=== PATIENT | female | born 1970 | race Caucasian/White ===

== ENCOUNTER → 2016-11-30 | Outpatient (CLI) | payer OTHER | LOC: FIMAGING 14:16 | PROVIDERS: ATTEND Physician Assistant | DX: N63 Unspecified lump in breast (principal) | CPT/HCPCS: G0204 ==

== ENCOUNTER → 2016-12-07 | Outpatient (CLI) | payer OTHER | LOC: FIMAGING 11:44 | PROVIDERS: ATTEND Physician Assistant | PROC: 0HBU3ZX Excision of Left Breast, Percutaneous Approach, Diagnostic (ICD-10-PCS; principal; 2016-12-07) | DX: C50.912 Malignant neoplasm of unspecified site of left female breast (principal) ==

== ENCOUNTER → 2016-12-27 | Outpatient (CLI) | payer OTHER | LOC: FIMAGING 09:37 | PROVIDERS: ATTEND Surgery | PROC: C71L1ZZ Planar Nuclear Medicine Imaging of Upper Chest Lymphatics using Technetium 99m (Tc-99m) (ICD-10-PCS; principal; 2016-12-27) | DX: C50.912 Malignant neoplasm of unspecified site of left female breast (principal) | CPT/HCPCS: 78195; A9520 ==

== ENCOUNTER 2017-06-27 06:42 | Inpatient (IN) | payer OTHER ==
--- NOTE | 2017-06-20 17:56 | GHP ---
[f rep st] PREOP HISTORY AND PHYSICAL SCHEDULED DATE OF SURGERY: 06/27/2017 at 8:15 a.m. SURGERY TO BE PERFORMED: Total abdominal hysterectomy, bilateral salpingo- oophorectomy. PREOPERATIVE DIAGNOSIS: Severe menometrorrhagia, submucosal uterine fibroids, and history of breast cancer. HISTORY OF PRESENT ILLNESS: The patient is a 47-year-old 2, para 2-0-0- 2, with a past medical history significant for breast cancer, who is status post lumpectomy, radiation and chemotherapy, and is now on tamoxifen. She is currently experiencing very heavy periods every 2 to 4 weeks with heavy flow, multiple flooding accidents, limiting her activities, and she presented for consultation and evaluation. She had an ultrasound which revealed multiple uterine fibroids, specifically 2 submucosal in location. The largest is 1.27 x 1.08 x 1.24 cm and the other one is 1.5 x 1.5 x 0.9 cm. She also has a small cervical subserosal fibroid. The endometrial lining itself was thin at 0.65 cm. Ovaries have multiple follicles and the left ovary has a small complex cyst that is 1.5 cm. She presented to me for treatment options regarding submucosal fibroids and heavy menometrorrhagia. The patient is very concerned about possibility of ovarian and uterine cancer because of her history of breast cancer as well as her tamoxifen use, and she wishes to have definitive therapy with a hysterectomy. We had an extensive discussion on type of hysterectomy and surgical approaches. She has a history of C-sections with her 2 children and is very concerned about the possibility of vaginal surgery or difficulties with vaginal surgery requiring trauma to the vagina or the vulva. She prefers an abdominal approach, even though the overall size of her uterus is not very big and I offered her a laparoscopic approach. The patient prefers to have an abdominal approach and we will do a total abdominal hysterectomy/ bilateral salpingo-oophorectomy. PAST OBSTETRICAL HISTORY: In 1993, she had a and in 1997 she had a repeat . was for arrest of descent. The second one was an elective repeat. Those are her only 2 pregnancies. There were no overall complications. PAST GYNECOLOGICAL HISTORY: Significant for her breast cancer. She has used the pill and IUDs for control in the past. Her current has a vasectomy. Her bleeding is heavy, dysfunctional, and has been increasing over the past year. She has not had a history of an abnormal Pap. Her most recent Pap was in March of this year and was normal. She has no history of any STDs. PAST MEDICAL HISTORY: Significant for the breast cancer diagnosed at the beginning of this year and she is currently in treatment and she is on tamoxifen. PAST SURGICAL HISTORY: Significant for an appendectomy in 2002, breast implants in 2000, and then her breast lumpectomy at the beginning of this year. ALLERGIES: She has no known drug allergies. SOCIAL HISTORY: She denies tobacco. She has alcohol 2 to 3 times a week. No drug use. No other substances. She regularly exercises. She works in insurance sales. Lives with her and her 2 children. REVIEW OF SYSTEMS: Significant for significant anxiety and depression. Patient has had symptoms that have worsened since her breast cancer diagnosis and treatments. She is beginning therapy for this and I started her on Paxil for depression and anxiety symptoms as well as to attempt to improve hot flashes and night sweats as the side effects from the tamoxifen and they will get worse after her hysterectomy. Other review of systems negative. No other general symptoms, cardiovascular, respiratory, GI, integument, and endocrine. All other 10-point review of systems negative except for in HPI as above. FAMILY HISTORY: Significant for father who had alcoholism and heart disease and at age 45. A brother also has alcoholism and type 2 diabetes. Mother has type 2 diabetes. Maternal grandmother had cervical cancer and her other grandmother had breast cancer. She has had genetic counseling and is negative for BRACA lesion. OBJECTIVE: VITAL SIGNS: Today, blood pressure is 100/58, weight is 184. GENERAL: She is a well-developed, well-nourished female, in no acute distress. LUNGS: Clear to auscultation bilaterally. HEART: Regular rate and rhythm. No murmurs. ABDOMEN: Soft, nontender, nondistended. Normal bowel sounds. She has a well-healed Pfannenstiel incision that does have some adherent scar tissue. PELVIC: Normal external genitalia. Normal nulliparous cervix. Uterus is mobile, midline, nontender. No cervical motion tenderness. No adnexal tenderness. ASSESSMENT AND PLAN: A 47-year-old 2, para 2-0-0-2, with a history of breast cancer and significant menometrorrhagia, submucosal fibroids, desires definitive therapy. She was consented for a total abdominal hysterectomy/ bilateral salpingo-oophorectomy today. She understands the risks and benefits, the risks including bleeding, infection, damage to organs, bowel, bladder, nerves, blood vessels, ureters, and need for additional procedures. /[id number]/MODL MTDD
[2017-06-27] MEDS ORDERED: LR 1,000 ML IV ONE (06:49)
[2017-06-27] MEDS ORDERED: LIDOCAINE 1% 2 ML INJ ID PRN (06:49)
--- NOTE | 2017-06-27 07:59 | PDANEPAE ---
ANE Past Medical History - Cardiovascular History Hx Hypertension: No Hx Arrhythmias: No Hx Chest Pain: No Hx Coronary Artery / Peripheral Vascular Disease: No Hx CHF / Valvular Disease: No Hx Palpitations: No - Pulmonary History Hx COPD: No Hx Asthma/Reactive Airway Disease: Yes Hx Recent Upper Respiratory Infection: No Hx Oxygen in Use at Home: No Hx Sleep Apnea: No Sleep Apnea Screening Result - Last Documented: Negative Pulmonary History Comment: EXERCISE INDUCED ASTHMA. INHALER - Neurologic History Hx Cerebrovascular Accident: No Hx Seizures: No Hx Dementia: No - Endocrine History Hx Diabetes: No - Renal History Hx Renal Disorders: No - Liver History Hx Hepatic Disorders: No - Neurological & Psychiatric Hx Hx Neurological and Psychiatric Disorders: Yes Neurological / Psychiatric History Comment: ANXIETY - Cancer History Hx Cancer: Yes Cancer History Comment: BREAST CA - Congenital Disorder History Hx Congenital Disorders: No - GI History Hx Gastrointestinal Disorders: No - Other Health History Other Health History: RADIATION THERAPY LD MARCH 2017 - Chronic Pain History Chronic Pain: No - Surgical History Prior Surgeries: C SECTIONS X2. BREAST IMPLANTS. APPENDECTOMY. LUMPECTOMY L BREAST ANE Review of Systems Review of Systems: - Exercise capacity METS (RN): 4 METS ANE Patient History - Allergies Allergies/Adverse Reactions: No Known Allergies Allergy (Unverified 06/05/16 15:11) - Home Medications Home Medications: ALPRAZolam [Xanax 0.5 MG (*)] 0.5 mg PO HS PRN 06/12/17 [Last Taken 06/25/17] Ibuprofen [Motrin (*)] 200 mg PO DAILY PRN 06/12/17 [Last Taken 06/20/17] Tamoxifen Citrate [Nolvadex 10 MG (*)] 20 mg PO DAILY 06/12/17 [Last Taken 06/26] - NPO status NPO Since - Liquids (Date): 06/26/17 NPO Since - Liquids (Time): 19:30 NPO Since - Solids (Date): 06/26/17 NPO Since - Solids (Time): 19:30 - Smoking Hx Smoking Status: Never smoked - Family Anes Hx Family Hx Anesthesia Complications: NEG ANE Labs/Vital Signs - Vital Signs Blood Pressure: 110/76 Heart Rate: 76 Respiratory Rate: 16 O2 Sat (%): 95 Height: 168.91 cm Weight: 81.647 kg ANE Physical Exam - Airway Neck exam: FROM Mallampati Score: Class 2 Mouth exam: normal dental/mouth exam - Pulmonary Pulmonary: no respiratory distress - Cardiovascular Cardiovascular: regular rate and rhythym - ASA Status ASA Status: II ANE Anesthesia Plan Anesthesia Plan: general endotracheal anesthesia, spinal Regional Anesthesia: POPC/PSR
[2017-06-27] MEDS ORDERED: MIDAZOLAM 2 MG/2 ML VIAL ONE (08:05)
[2017-06-27] MEDS ORDERED: PROPOFOL/EMULSION 500 MG/50 ML BOTTLE IV ONE ×4 (08:05→10:05)
[2017-06-27] MEDS ORDERED: fentaNYL 100 MCG/2 ML INJ ONE (08:05)
[2017-06-27] MEDS ORDERED: METOCLOPRAMIDE 10 MG/2 ML VIAL ONE (08:08)
[2017-06-27] MEDS ORDERED: DEXAMETHASONE 4 MG/ML VIAL ONE ×2 (08:08)
[2017-06-27] MEDS ORDERED: LIDOCAINE 2% 100 MG/5 ML SYR ONE (08:08)
[2017-06-27] MEDS ORDERED: KETOROLAC 30 MG/1 ML SDV ONE (08:08)
[2017-06-27] MEDS ORDERED: ROCURONIUM 50 MG/5 ML VIAL ONE (08:10)
[2017-06-27] MEDS ORDERED: BUPIVACAINE 0.5% 30 ML SDV ONE (08:24)
[2017-06-27] MEDS ORDERED: ceFAZolin 2 GM/SWFI 2 GM/20 ML SYR IVP ONE (08:25)
--- NOTE | 2017-06-27 08:26 | PDHPUP ---
History & Physical Update H&P update statement: This history and physical update is based on an assessment of the patient which was completed after admission or registration (within 24 hours), but prior to the surgery/procedure.
[2017-06-27] MEDS ORDERED: ceFAZolin 2 GM/SWFI 20 ML SYR IVP ONE (08:32)
[2017-06-27] MEDS ORDERED: SUGAMMADEX SODIUM 200 MG/2 ML VIAL IVP ONE (10:13)
[2017-06-27] MEDS ORDERED: OXYCODONE/APAP 5/325 TAB PO PRN (10:52)
[2017-06-27] MEDS ORDERED: HYDROmorphONE/DILAUDID 6 MG/30 ML PCA IV PRN (10:56)
[2017-06-27] MEDS ORDERED: LACTULOSE 20 GM/30 ML UDCUP PO PRN (10:56)
[2017-06-27] MEDS ORDERED: POLYETHYLENE GLYCOL 3350 17 GM PKT PO PRN (10:56)
[2017-06-27] MEDS ORDERED: NALOXONE HCL 0.4 MG/ML INJ IVP PRN ×2 (10:56→11:00)
[2017-06-27] MEDS ORDERED: MAGNESIUM HYDROXIDE 30 ML UDCUP PO PRN (10:56)
[2017-06-27] MEDS ORDERED: BISACODYL 10 MG SUPP PR PRN (10:56)
--- NOTE | 2017-06-27 10:58 | POSTOPPROG ---
Post Op Note Date of Operation: 06/27/17 Surgeon: Leonila Harris Scalemaker: Dr Elisabet Cole Anesthesiologist: Dr Jersey Bryan Anesthesia: GET(General Endotracheal) Pre-op Diagnosis: menomenorrhagia, submucosal fibroids, h/o breast cancer Post-op Diagnosis: same Procedure: LAMBERT BSO Findings: uterus, tubes and ovaries grossly wnl Inf/Abcess present in the surg proc area at time of surgery?: No Depth: Organ Space EBL: 50-100 Total fluids administered: 2100 Drains: Other (vila 250) Specimen(s): uterus with cervix, bilateral tubes and ovaries
[2017-06-27] MEDS ORDERED: ONDANSETRON 4 MG/2 ML VIAL IVP PRN ×2 (11:00→19:35)
[2017-06-27] MEDS ORDERED: LR 500 ML IV PRN (11:00)
[2017-06-27] MEDS ORDERED: ACETAMINOPHEN 500 MG TAB PO PRN (11:00)
[2017-06-27] MEDS ORDERED: MEPERIDINE 25 MG/ML SYR IVP PRN (11:00)
[2017-06-27] MEDS ORDERED: ALBUTEROL 3 ML DEYVIAL IH PRN (11:00)
[2017-06-27] MEDS ORDERED: fentaNYL 100 MCG/2 ML INJ IVP PRN (11:00)
--- NOTE | 2017-06-27 11:00 | POSTANESTH ---
Post Anesthetic Evaluation Cardiovascular Status: Other, See Comment (decresed secondary to SAB) Respiratory Status: Normal, Stable Level of Consciousness/Mental Status: Mildly Sleepy, Arousable Pain Control: Adequate, Prn Tx Ordered Nausea/Vomiting Control: Adequate, Prn Tx Ordered Complications Possibly Related to Anesthesia: None Noted
--- NOTE | 2017-06-27 12:46 | GOP ---
[f rep st] OPERATIVE REPORT DATE OF OPERATION: 06/27/2017 SURGEON: Leonila Harris MD GLUE SPREADING MACHINE OPERATOR: Elisabet Cole DO. ANESTHESIA: General. ANESTHESIOLOGIST: Jersey Bryan MD. PREOPERATIVE DIAGNOSIS: Menometrorrhagia, submucosal fibroids, and history of breast cancer. POSTOPERATIVE DIAGNOSIS: Menometrorrhagia, submucosal fibroids, and history of breast cancer. PROCEDURE PERFORMED: 1. Total abdominal hysterectomy. 2. Bilateral salpingo-oophorectomy. FINDINGS: SPECIMENS: Uterus with cervix and bilateral tubes and ovaries. ESTIMATED BLOOD LOSS: For the procedure, 100 cc. DESCRIPTION OF PROCEDURE: Patient was taken to the operating room where she was placed under general anesthesia without difficulty. She was prepped and draped in the dorsal supine position, and a Fole y catheter was placed in her bladder. After a WHO time-out was performed, a transverse skin incision was made in the previous scar, and the incision was carried down to the underlying layer o f fascia. The fascia was incised in the midline. Fascial incision was extended laterally with Odom scissors. Superior aspect of the fascial incision was grasped with Ely clamps and elevated, and t he rectus muscles were dissected off sharply. Inferior aspect of the fascial incision was grasped wi th Ely clamps and elevated, and the rectus muscles were dissected off sharply. Rectus muscles wer e in the midline. Peritoneum was entered sharply. Peritoneal incision was extended superi sandie and inferiorly with good visualization of bladder. Uterus was visualized. It was grossly small and within normal limits, as were the tubes and the ovaries. The uterine cornual regions were grasp ed with long Mayra clamps, and the uterus was extended out of the incision. The patient was placed i n steep Trendelenburg, and the bowel was packed away with moist laparotomy sponges, and an O'Larry O 'Cifuentes retractor was used for visualization. The right round ligament was grasped with the Ely clamps, suture ligated with 0 Vicryl, transfixed, and entered sharply with the Bovie. The broad lig ament was then dissected in the anterior and posterior planes. The anterior lip of the broad ligamen t dissection was carried through to the vesicouterine peritoneum, and the bladder flap was created. The patient had previously had 2 C sections and had extensive adhesions along her bladder surface to her anterior uterus. This was carefully dissected until we found a good plane, and the bladder was c arefully dissected inferiorly with sharp as well as blunt dissection. The posterior leaf of the broa d ligament was then dissected, and an incision was made around the infundibulopelvic ligament. This was clamped with double Alec clamps and suture ligated with 0 Vicryl, and good hemostasis was assur ed. The uterine arteries were then skeletonized bilaterally, grasped with Alec clamps, and suture ligated x2 with 0 Vicryl. Dissection of the cardinal ligaments was then performed with straight Hean ey clamps. They were cut and suture ligated with 0 Vicryl until the uterosacral ligament was identif ied and clamped with a curved Michelle clamp. Identical procedure was performed on the left side, start ing with the round ligament suture ligated with 0 Vicryl, dissection of the anterior and posterior le aves of the broad ligament, and the anterior leaf of the broad ligament was joined from the right timoteo e to create the full bladder flap. An incision was made and identified the infundibulopelvic ligamen t. This was clamped with Alec clamps and suture ligated with 0 Vicryl. The uterine arteries were skeletonized and identified directly at the cervical os. They were suture ligated with 0 Vicryl, and good hemostasis was obtained. Dissection was performed along the cardinal ligaments until the utero sacral was identified, and grasped with a curved Michelle clamp. After fully dissecting off the bladder and identifying the posterior peritoneum. The uterus was then dissected superior to the curved Hane y clamps with Nicholas scissors, and the cervix was removed. The vagina was identified, the uterus was removed directly, and there was good inspection that the full cervix was there. The uterosacral ligaments were then transfixed with transsection [id number] sutures with 0 Vicryl, and the vagin al cuff was closed with [id number]-[id number] sutures of 0 Vicryl until good hemostasis was assured. The p ye was copiously irrigated with warm normal saline, and small areas of bleeding were cauterized or suture ligated until we were assured of full hemostasis. The ureters were identified in the posteri or pelvic brim and seen to be peristalsing. The O'Larry O'Cifuentes retractor was then removed. The laparotomy sponges were removed. Full counts were identified and correct. The rectus muscles were approximated with 2-0 Vicryl in a kiyzcq-[id number]-cbatt suture. The fascia was closed with 0 Vicryl in a r unning fashion. The subcutaneous layer was closed with 2-0 Vicryl, and the skin was closed with 4-0 Vicryl. The patient tolerated the procedure well. Sponge, lap, needle, and instrument counts were c orrect x2. Patient went to the recovery room in good condition. INDICATION FOR PROCEDURE: The patient is a 47-year-old 2, para 2-0-0-2 with past medical his tory significant for breast cancer. She is status post lumpectomy, radiation, and chemotherapy, and is now on tamoxifen. Currently, with her tamoxifen, she has been having extremely heavy periods ever y 2-4 weeks with heavy flow and multiple flooding accidents, limiting her activity, and she presented for consultation and evaluation. She had a pelvic ultrasound which revealed multiple uterine fibroi ds, specifically 2 mucosal in location; the largest was 1.27 x 1.06 x 1.24 and the other one was 1.5 x 1.5 x 0.9 cm. She had a small cervical subserosal fibroid. The endometrial lining itself was thin at 0.65 cm. Ovaries had multiple follicles, and left ovary had a complex cyst, but otherwise looked normal. She presented to discuss treatment options. She was given options of hysteroscopy with sub mucosal myomectomy and endometrial ablation versus definitive management with a hysterectomy. The pa birgit wished to have definitive management with hysterectomy. Specifically, she wanted her ovaries o ut because of concerns for breast cancer recurrence, as well as bleeding issues and concern for endom etrial cancer with tamoxifen use. She has had a history of 2 C sections, and she was given the optio ns of total laparoscopic hysterectomy versus total abdominal hysterectomy. Patient feels more comfor table with abdominal approach and did not want to have any possible vaginal trauma, so we decided to proceed with total abdominal hysterectomy and bilateral salpingo-oophorectomy. Patient was counseled about the risks and benefits of the procedure. She understood the risks and benefits, including ble eding, infection, damage to organs (uterus, tubes, ovaries, bowel, bladder, nerves, blood vessels, ur eters), risk of need of additional procedures or complications from anesthesia including . She understood these risks and benefits and agreed to proceed. FLUID REPLACEMENT: 2100 cc. URINE OUTPUT: 250 cc of clear urine. /[id number]/MODL
[2017-06-27] MEDS: KETOROLAC 30 MG/1 ML SDV IVP PRN (17:49)
--- NOTE | 2017-06-27 19:35 | SOAPPROG ---
SOAP Progress Note Assessment/Plan: Assessment: 47 y/o POD 0 s/p LAMBERT BSO doing well. Plan: Pt received a pre-op spinal and that seems to be doing well controlling her pain , in addition to Toradol. She will gradually advance diet and transition to po pain meds tomorrow. D/c vila in am. Routine POC. 06/27/17 19:33 Subjective: Pt is doing well this evening. She reports minimal pain when she is at rest. She has some burning incisional pain but is doing well with pain meds. She denies nausea/vomiting but has no appetite and has just tried clears. Objective: Vital Signs Temp Pulse Resp BP Pulse Ox 36.6 C 72 16 106/69 96 06/27/17 18:17 06/27/17 18:17 06/27/17 18:17 06/27/17 18:17 06/27/17 18:17 06/26/17 06/27/17 06/28/17 05:59 05:59 05:59 Intake Total 3600 Output Total 1260 Balance 2340 - Pending Discharge Pending Discharge Within 48 Hours: Yes Pending Discharge Date: 06/29/17 Pending Discharge Time: 11:00 Physical Exam - Physical Exam General Appearance: WD/WN, alert, no apparent distress Neck: non-tender, full range of motion, supple Respiratory: chest non-tender, lungs clear, normal breath sounds Cardiac/Chest: regular rate, rhythm Abdomen: soft, other (bandage c/d/i) Extremities: swelling (no), Poonam's sign (neg) ICD10 Worksheet Patient Problems: Problems Problem Status Onset S/P abdominal hysterectomy Acute - ICD10 Problem Qualifiers (1) S/P abdominal hysterectomy
[2017-06-27] MEDS: ONDANSETRON DISINTEGRATING 4 MG TAB PO PRN (19:45)
[2017-06-27] MEDS: SENNOSIDES/DOCUSATE SODIUM TAB PO SCH (20:27)
[2017-06-27] MEDS: HYDROCODONE/APAP 5/325 TAB PO PRN (20:27)
[2017-06-27] MEDS: LR 1,000 ML IV SCH (20:37)
[2017-06-28] MEDS: KETOROLAC 30 MG/1 ML SDV IVP PRN ×3 (00:38→14:35)
[2017-06-28] MEDS: HYDROCODONE/APAP 5/325 TAB PO PRN ×2 (04:55→09:56)
[2017-06-28 05:03] LABS: % IMMATURE GRANULYOCYTES 0.2 % (0.0-1.1); ABSOLUTE IMMATURE GRANULOCYTES 0.02 10^3/uL (0.00-0.10); ADD DIFF? NO; ADD MORPH? NO; ADD SCAN? NO; ATYPICAL LYMPHOCYTE FLAG 0 (0-99); FRAGMENT RBC FLAG 0 (0-99); HEMOGLOBIN 11.2 g/dL (12.6-16.3); LEFT SHIFT FLG 0 (0-99); LIPEMIA HEMOLYSIS FLAG 90 (0-99); MEAN CELL HEMOGLOBIN 29.8 pg (27.9-34.1); MEAN CELL HEMOGLOBIN CONCENTR. 33.9 g/dL (32.4-36.7); MEAN CELL VOLUME 87.8 fL (81.5-99.8); MEAN PLATELET VOLUME 10.5 fL (8.7-11.7); PLATELET CLUMPS FLAG 0 (0-99); PLATELET COUNT 195 10^3/uL (150-400); RED BLOOD CELL COUNT 3.76 10^6/uL (4.18-5.33); RED CELL DISTRIBUTION WIDTH 11.7 % (11.5-15.2)
[2017-06-28] MEDS: SENNOSIDES/DOCUSATE SODIUM TAB PO SCH ×2 (08:26→20:07)
--- NOTE | 2017-06-28 10:38 | SOAPPROG ---
SOAP Progress Note Assessment/Plan: Assessment: 47 y/o POD 1 s/p LAMBERT BSO doing well. Plan: Zofran prn nausea, d/c vila this am and ambulate with assistance. Will provide an abdominal binder. Routine POC. I anticipate d/c tomorrow, not today. 06/27/17 19:33 06/28/17 10:39 Subjective: Pt is recovering well. She is struggling with pain control this am because she is nauseous from the Ada, but has no appetite and is barely eating. She is up in a chair and is ready to have her vila d/c. Objective: Vital Signs Temp Pulse Resp BP Pulse Ox 37.6 C 82 16 89/56 L 93 06/28/17 04:32 06/28/17 04:32 06/28/17 04:32 06/28/17 04:32 06/28/17 04:32 Laboratory Results 06/28/17 04:51 06/27/17 06/28/17 06/29/17 05:59 05:59 05:59 Intake Total 5425 Output Total 1260 Balance 4165 - Pending Discharge Pending Discharge Within 24 Hours: Yes Pending Discharge Date: 06/29/17 Pending Discharge Time: 11:00 Physical Exam - Physical Exam General Appearance: WD/WN, alert, no apparent distress Neck: non-tender, full range of motion, supple Respiratory: chest non-tender, lungs clear, normal breath sounds Cardiac/Chest: regular rate, rhythm, other Abdomen: other (bandage c/d/i) Extremities: swelling (no), Poonam's sign (neg) ICD10 Worksheet Patient Problems: Problems Problem Status Onset S/P abdominal hysterectomy Acute - ICD10 Problem Qualifiers (1) S/P abdominal hysterectomy
[2017-06-28] MEDS: ONDANSETRON DISINTEGRATING 4 MG TAB PO PRN (10:39)
[2017-06-28] MEDS: LR 1,000 ML IV SCH (11:14)
[2017-06-28] MEDS ORDERED: ZOLPIDEM TARTRATE 5 MG TAB PO PRN (14:33)
[2017-06-28] MEDS: TAMOXIFEN CITRATE 10 MG TAB PO SCH ×2 (14:38→19:24)
[2017-06-28] MEDS: IBUPROFEN 600 MG TAB PO SCH ×2 (16:01→19:06)
[2017-06-28 17:49] VITALS: RESP 16
[2017-06-28] MEDS ORDERED: LOPERAMIDE HCL 2 MG CAP PO PRN (20:50)
[2017-06-29] MEDS: KETOROLAC 30 MG/1 ML SDV IVP PRN (00:40)
[2017-06-29] MEDS ORDERED: ACETAMINOPHEN 325 MG TAB PO PRN (01:03)
[2017-06-29] MEDS: IBUPROFEN 600 MG TAB PO SCH ×5 (01:09→21:56)
[2017-06-29 06:03] LABS: ADD DIFF? NO; ADD MORPH? NO; ADD SCAN? NO; ATYPICAL LYMPHOCYTE FLAG 0 (0-99); FRAGMENT RBC FLAG 0 (0-99); LEFT SHIFT FLG 0 (0-99)
[2017-06-29] MEDS: HYDROCODONE/APAP 5/325 TAB PO PRN ×4 (08:18→20:34)
[2017-06-29] MEDS: TAMOXIFEN CITRATE 10 MG TAB PO SCH ×2 (08:23→20:35)
[2017-06-29] MEDS: ONDANSETRON DISINTEGRATING 4 MG TAB PO PRN ×2 (08:24→12:36)
--- NOTE | 2017-06-29 12:15 | SOAPPROG ---
SOAP Progress Note Assessment/Plan: Assessment: 47 y/o POD 2 s/p LAMBERT BSO doing well. Plan: Pt is doing better. We checked a CBC and had inaccurate results do to lab error. We are re checking now. If WBC is normal and Hct is stable, I will d/c home with Rx Kirkwood and Ibuprofen and follow-up @ 2 and 6 weeks. We reviewed activity precautions and when to call. 06/27/17 19:33 06/28/17 10:39 06/29/17 12:16 Subjective: Pt had a fever overnight 101. She had episodes of diarrhea that have now resolved. She is working with her IS and feeling much better after a dose of Kirkwood. She took a shower and is tolerating reg diet now. She wants to go home. Objective: Vital Signs Temp Pulse Resp BP Pulse Ox 37.8 C 85 16 106/79 94 06/29/17 08:00 06/29/17 08:00 06/29/17 08:00 06/29/17 08:00 06/29/17 08:00 Laboratory Results 06/29/17 05:20 06/28/17 06/29/17 06/30/17 05:59 05:59 05:59 Intake Total 5425 1350 Output Total 1260 1000 Balance 4165 350 - Pending Discharge Pending Discharge Within 24 Hours: Yes Pending Discharge Date: 06/30/17 Pending Discharge Time: 11:00 Physical Exam - Physical Exam General Appearance: WD/WN, alert, no apparent distress Neck: non-tender, full range of motion, supple Respiratory: chest non-tender, lungs clear, normal breath sounds Cardiac/Chest: regular rate, rhythm Abdomen: normal bowel sounds, other (incision c/d/i) ICD10 Worksheet Patient Problems: Problems Problem Status Onset S/P abdominal hysterectomy Acute - ICD10 Problem Qualifiers (1) S/P abdominal hysterectomy
[2017-06-29 12:17] LABS: LIPEMIA HEMOLYSIS FLAG 80 (0-99); PLATELET CLUMPS FLAG 0 (0-99)
[2017-06-29 12:23] LABS: % IMMATURE GRANULYOCYTES 0.4 % (0.0-1.1); ABSOLUTE IMMATURE GRANULOCYTES 0.04 10^3/uL (0.00-0.10); HEMATOCRIT 30.6 % (38.0-47.0); HEMOGLOBIN 10.3 g/dL (12.6-16.3); MEAN CELL HEMOGLOBIN CONCENTR. 33.7 g/dL (32.4-36.7); MEAN CELL VOLUME 89.2 fL (81.5-99.8); MEAN PLATELET VOLUME 11.5 fL (8.7-11.7); PLATELET COUNT 148 10^3/uL (150-400); RED BLOOD CELL COUNT 3.43 10^6/uL (4.18-5.33); RED CELL DISTRIBUTION WIDTH 12.1 % (11.5-15.2)
[2017-06-29] MEDS: SENNOSIDES/DOCUSATE SODIUM TAB PO SCH ×2 (13:43→21:00)
[2017-06-29] MEDS ORDERED: PROMETHAZINE HCL 25 MG/ML INJ IVP PRN (15:13)
[2017-06-29] MEDS: PROMETHAZINE HCL 25 MG TAB PO PRN (21:56)
[2017-06-30] MEDS: HYDROCODONE/APAP 5/325 TAB PO PRN ×3 (01:13→15:56)
[2017-06-30] MEDS: IBUPROFEN 600 MG TAB PO SCH ×2 (05:25→12:25)
[2017-06-30] MEDS: PROMETHAZINE HCL 25 MG TAB PO PRN ×2 (05:25→11:54)
[2017-06-30 09:10] VITALS: O2SAT 94
[2017-06-30] MEDS ORDERED: KETOROLAC 30 MG/1 ML SDV IVP PRN (12:31)
--- NOTE | 2017-06-30 12:45 | SOAPPROG ---
SOAP Progress Note Assessment/Plan: Assessment: 47 y/o POD 3 s/p LAMBERT BSO doing well. Plan: I feel she likely has a GI virus, but I need to rule out bowel pathology related to surgery. I will order a CT of abdomen and pelvis today. If negative , with d/c home with Phenergan, Zofran, Ibuprofen and Elmer. 06/27/17 19:33 06/28/17 10:39 06/29/17 12:16 06/30/17 12:46 Subjective: Pt is not feeling well this am. She had episodes of nausea/vomiting that began last pm and is continuing through this am. She didn't tolerate toast today, and hasn't had anything else. She has good incisional pain control with Elmer. She is ambulating and voiding well and has no bleeding. She denies fever/ chills, hasn't had any other episodes of diarrhea x 2 days, but she is having flatus. She would like to d/c home but generally admits that she doesn't feel well. Objective: Vital Signs Temp Pulse Resp BP Pulse Ox 36.3 C 74 16 99/69 L 94 06/30/17 08:50 06/30/17 08:50 06/30/17 08:50 06/30/17 08:50 06/30/17 08:50 Laboratory Results 06/29/17 05:20 06/29/17 06/30/17 07/01/17 05:59 05:59 05:59 Intake Total 1350 Output Total 1000 15 Balance 350 -15 - Pending Discharge Pending Discharge Within 24 Hours: Yes Pending Discharge Date: 07/01/17 Pending Discharge Time: 11:00 Physical Exam - Physical Exam General Appearance: WD/WN, alert, no apparent distress Neck: non-tender, full range of motion, supple Respiratory: chest non-tender, lungs clear, normal breath sounds Cardiac/Chest: regular rate, rhythm Abdomen: normal bowel sounds, soft, other (+ BS in all 4 quadrants, no distention, incision c/d/i) Extremities: swelling (no), Poonam's sign (neg) ICD10 Worksheet Patient Problems: Problems Problem Status Onset S/P abdominal hysterectomy Acute - ICD10 Problem Qualifiers (1) S/P abdominal hysterectomy
[2017-06-30] MEDS ORDERED: IOPAMIDOL (ISOVUE-300) 100 ML BTL ONE (15:25)
[2017-06-30 16:28] VITALS: BP 128/82; PULSE 75; TEMP 99
[2017-06-30] MEDS: TAMOXIFEN CITRATE 10 MG TAB PO SCH (16:34)
[2017-06-30] MEDS: SENNOSIDES/DOCUSATE SODIUM TAB PO SCH (16:34)
== END 2017-06-30 17:25 | disposition home or self-care (01) | DRG 743 ==
LOC: F3N 06:42 → EDSTATUS 08:15 → FOB 12:21
PROVIDERS: ADMIT Obstetrics & Gynecology; ATTEND Obstetrics & Gynecology
PROC: 0UT70ZZ Resection of Bilateral Fallopian Tubes, Open Approach (ICD-10-PCS; principal; 2017-06-27 08:15)
PROC: 0UT20ZZ Resection of Bilateral Ovaries, Open Approach (ICD-10-PCS; principal; 2017-06-27 08:15)
PROC: 0UT90ZZ Resection of Uterus, Open Approach (ICD-10-PCS; principal; 2017-06-27 08:15)
DX: D25.0 Submucous leiomyoma of uterus (principal); D25.2 Subserosal leiomyoma of uterus; N92.1 Excessive and frequent menstruation with irregular cycle; R19.7 Diarrhea, unspecified; Z85.3 Personal history of malignant neoplasm of breast; Z92.3 Personal history of irradiation
CPT/HCPCS: J0690; J1100; J1885; J2001; J2250; J2550; J2704; J2765; J3010; Q9967

== ENCOUNTER → 2017-07-25 | Outpatient (CLI) | payer OTHER | LOC: FIMAGING 13:32 | PROVIDERS: ATTEND Internal Medicine Hematology & Oncology | DX: Z08 Encounter for follow-up examination after completed treatment for malignant neoplasm (principal); Z85.3 Personal history of malignant neoplasm of breast | CPT/HCPCS: G0204 ==

== ENCOUNTER → 2018-06-28 | Outpatient (CLI) | payer OTHER | LOC: CIMAGING 18:28 | PROVIDERS: ATTEND Family Medicine | DX: R05 Cough (principal); Z85.3 Personal history of malignant neoplasm of breast | CPT/HCPCS: 71046-PO ==

== ENCOUNTER → 2018-10-12 | Outpatient (CLI) | payer OTHER | LOC: BRMIMAGING 09:21 | PROVIDERS: ATTEND Surgery | DX: Z85.3 Personal history of malignant neoplasm of breast (principal) | CPT/HCPCS: 76641-PO ==